=== PATIENT | female | born 2000 | race African-American/Black ===

== ENCOUNTER 2019-02-04 14:53 | Emergency (ER) | payer MEDICAID ==
[~2019-02-04] VITALS: Ht 165.1 cm; Wt 65.0 kg
[2019-02-04] MEDS ORDERED: FLUORESCEIN SODIUM 1MG/STRIP OP ONE (18:30)
[2019-02-04] MEDS ORDERED: ACETAMINOPHEN 325MG TABLET PO ONE (18:30)
[2019-02-04] MEDS ORDERED: TETRACAINE 0.5% OPHTH DROPS 4ML OP ONE (18:30)
[2019-02-04] MEDS ORDERED: LIDOCAINE HCL/PF 1% 10 MG/ML 5ML VIAL IJ ONE (20:15)
[2019-02-04] MEDS ORDERED: TETANUS, DIPHTHERIA, PERTUSSIS VAC/PF 0.5ML (>7YR OLD) IM ONE (20:15)
[2019-02-04] MEDS ORDERED: IBUPROFEN 800MG TABLET PO ONE (20:30)
[2019-02-04 21:04] VITALS: BP 115/78
== END 2019-02-04 21:06 | disposition home or self-care (01) ==
LOC: ER 14:53
DX: S01.01XA Laceration without foreign body of scalp, initial encounter (principal); S16.1XXA Strain of muscle, fascia and tendon at neck level, initial encounter; V43.62XA Car passenger injured in collision with other type car in traffic accident, initial encounter; Y93.89 Activity, other specified; Y92.89 Other specified places as the place of occurrence of the external cause; Y99.8 Other external cause status
CPT/HCPCS: 12001; 70450; 81025; 99284; J3490; Z7610; 90715

== ENCOUNTER 2019-08-02 15:27 | Emergency (ER) | payer MEDICAID, OTHER | END 2019-08-02 17:10 | disposition left against medical advice (07) | LOC: ER 15:27 | DX: Z53.21 Procedure and treatment not carried out due to patient leaving prior to being seen by health care provider (principal) ==

== ENCOUNTER 2020-02-29 11:55 | Emergency (ER) | payer OTHER ==
[~2020-02-29] VITALS: Ht 162.6 cm; Wt 65.7 kg
[2020-02-29] MEDS ORDERED: KETOROLAC 30MG/ML VIAL IM ONE (12:45)
[2020-02-29] MEDS ORDERED: ACETAMINOPHEN 325MG TABLET PO ONE (13:00)
[2020-02-29 14:05] VITALS: BP 118/65
== END 2020-02-29 14:06 | disposition home or self-care (01) ==
LOC: ER 12:00
DX: G43.909 Migraine, unspecified, not intractable, without status migrainosus (principal); R11.0 Nausea; H53.8 Other visual disturbances
CPT/HCPCS: 81025; 99282